=== PATIENT | male | born 1935 | race Caucasian/White ===

== ENCOUNTER 2017-08-05 12:21 | Inpatient (IN) | payer MEDICARE, OTHER ==
[2017-08-05 13:20] LABS: CHLORIDE,CL 95 mEq/L (98-106); SODIUM,NA 131 mEq/L (136-145)
[2017-08-05] MEDS ORDERED: Sodium Chloride 0.9% 10 ML Syringe FLUSH PRN (14:56)
[2017-08-05] MEDS ORDERED: Ondansetron 4 MG/2 ML SDV IV PRN (14:56)
[2017-08-05] MEDS ORDERED: Temazepam 15 MG Cap PO PRN (14:56)
[2017-08-05] MEDS ORDERED: Magnesium Hydroxide 400 MG/5 ML Susp 30 ML Cup PO PRN (14:56)
[2017-08-05] MEDS ORDERED: Calcium Carbonate 500 MG Tab.Chew PO PRN (15:01)
[2017-08-05] MEDS ORDERED: Non-Formulary Medication 1 Each (Benzonatate [Tessalon Perle] 100 MG) PO PRN (15:03)
[2017-08-05] MEDS ORDERED: Nitroglycerin 0.4 MG Tab.SL SL PRN (15:03)
[2017-08-05] MEDS ORDERED: valACYclovir 500 MG Tab PO SCH (15:15)
[2017-08-05] MEDS: cefTRIAXone 1 GM Vial IVPUSH SCH (17:24)
[2017-08-05] MEDS: Enoxaparin 30 MG/0.3 ML Syringe SUBCUT SCH (17:28)
[2017-08-05] MEDS: glipiZIDE 5 MG Tab PO SCH (17:29)
[2017-08-05] MEDS: valACYclovir 500 MG Tab PO SCH (18:25)
[2017-08-05] MEDS: MEMANTINE HCL 28 MG PO SCH (20:00)
[2017-08-05] MEDS: Donepezil 5 MG Tab PO SCH (20:56)
[2017-08-05] MEDS: atorvaSTATin 20 MG Tab PO SCH (20:56)
[2017-08-05] MEDS: Acetaminophen 325 MG Tab PO PRN (20:57)
[2017-08-06] MEDS: glipiZIDE 5 MG Tab PO SCH ×2 (07:03→16:43)
[2017-08-06] MEDS: Aspirin 81 MG Tab.EC PO SCH (07:46)
[2017-08-06] MEDS: amLODIPine 2.5 MG Tab PO SCH (07:46)
[2017-08-06] MEDS: Hydrochlorothiazide 25 MG Tab PO SCH (07:46)
[2017-08-06] MEDS: Losartan 25 MG Tab PO SCH (07:47)
[2017-08-06] MEDS: valACYclovir 500 MG Tab PO SCH (07:47)
[2017-08-06] MEDS: Cholecalciferol (Vitamin D3) 1,000 Unit Tab PO SCH (07:47)
[2017-08-06] MEDS: Metoprolol Succinate 25 MG Tab.ER PO SCH (07:47)
--- NOTE | 2017-08-06 10:11 | PN ---
DATE: 08/06/2017 S: Omar William has severe herpes zoster, mid thoracic, around the abdomen, a large area of cellulitis. On examination today, patient is not alert and orientated. The cellulitis has improved. He said he does not have much pain with it. ASSESSMENT: CELLULITIS. P: I will watch the kidney function. I had a long discussion about possible assisted placement for PT for a period of time. GUEVARA/LEONIE /[phone]
[2017-08-06] MEDS: cefTRIAXone 1 GM Vial IVPUSH SCH (16:43)
[2017-08-06] MEDS: Enoxaparin 30 MG/0.3 ML Syringe SUBCUT SCH (16:43)
[2017-08-06] MEDS: atorvaSTATin 20 MG Tab PO SCH (20:59)
[2017-08-06] MEDS: Acetaminophen 325 MG Tab PO PRN (20:59)
[2017-08-06] MEDS: Donepezil 5 MG Tab PO SCH (20:59)
[2017-08-06] MEDS: MEMANTINE HCL 28 MG PO SCH (21:00)
[2017-08-07] MEDS: Metoprolol Succinate 25 MG Tab.ER PO SCH (07:52)
[2017-08-07] MEDS: valACYclovir 500 MG Tab PO SCH (07:52)
[2017-08-07] MEDS: Aspirin 81 MG Tab.EC PO SCH (07:52)
[2017-08-07] MEDS: Losartan 25 MG Tab PO SCH (07:52)
[2017-08-07] MEDS: Cholecalciferol (Vitamin D3) 1,000 Unit Tab PO SCH (07:52)
[2017-08-07] MEDS: amLODIPine 2.5 MG Tab PO SCH (07:52)
[2017-08-07] MEDS: glipiZIDE 5 MG Tab PO SCH (07:53)
[2017-08-07] MEDS: Hydrochlorothiazide 25 MG Tab PO SCH (07:53)
[2017-08-07] MEDS: BRIMONIDINE EYEBOTH SCH ×2 (07:54→07:55)
[2017-08-07] MEDS ORDERED: NS + KCl 20mEq/L 1,000 ML IV ONE (08:48)
--- NOTE | 2017-08-07 08:59 | PCM.PN ---
- General Info Date of Service: 08/07/17 Admission Dx/Problem (Free Text): Herpes Zoster Cellulitis Subjective Update: Patient is sitting in chair eating breakfast at time of morning rounds. He is alert, but disoriented. He denies any complaints of pain. Nursing were concerned that patient was more sleepy last night. Head CT was done and showed no acute findings. Patient denies any pain. Has been requiring assist of 2 with ambulation. Functional Status: Reports: Pain Controlled, Tolerating Diet, Urinating. Denies : Ambulating, New Symptoms - Review of Systems General: Reports: Weakness, Fatigue. Denies: Fever, Chills HEENT: Reports: No Symptoms Pulmonary: Reports: No Symptoms. Denies: Shortness of Breath, Cough Cardiovascular: Reports: No Symptoms. Denies: Chest Pain Gastrointestinal: Reports: Decreased Appetite. Denies: Abdominal Pain, Constipation, Diarrhea, Nausea, Vomiting Genitourinary: Reports: No Symptoms Musculoskeletal: Reports: No Symptoms Skin: Reports: Rash Neurological: Reports: Confusion, Difficulty Walking, Weakness. Denies: Dizziness, Headache, Numbness, Paresthesia, Tingling, Tremors Psychiatric: Reports: Confusion (dementia) - Patient Data Vitals - Most Recent: Last Vital Signs Temp 97.5 F 08/07/17 00:00 Pulse 87 08/07/17 07:52 Resp 18 08/07/17 00:00 BP 140/84 08/07/17 07:52 Pulse Ox 97 08/07/17 00:00 Weight - Most Recent: 203 lb 6.4 oz Lab Results Last 24 Hours: Laboratory Results - last 24 hr 08/05/17 08/06/17 08/06/17 Range/Units 12:31 11:32 18:00 Sodium (136-145) mEq/L Potassium (3.5-5.0) mEq/L Chloride (98-106) mEq/L Carbon Dioxide (21-32) mmol/L BUN (7-18) mg/dL Creatinine (0.7-1.3) mg/dL Est Cr Clr Drug Dosing mL/min Estimated GFR (MDRD) (>=60) mL/min Glucose (75-99) mg/dL POC Glucose 189 H 162 H (75-105) mg/dl Calcium (8.4-10.1) mg/dL Vitamin D 25-Hydroxy 56 (30-100) ng/mL 08/06/17 08/07/17 08/07/17 Range/Units 20:31 00:21 07:15 Sodium 133 L (136-145) mEq/L Potassium 3.5 (3.5-5.0) mEq/L Chloride 96 L (98-106) mEq/L Carbon Dioxide 25 (21-32) mmol/L BUN 58 H (7-18) mg/dL Creatinine 2.6 H* (0.7-1.3) mg/dL Est Cr Clr Drug Dosing 23.63 mL/min Estimated GFR (MDRD) 24 L (>=60) mL/min Glucose 134 H D (75-99) mg/dL POC Glucose 220 H 149 H (75-105) mg/dl Calcium 8.9 (8.4-10.1) mg/dL Vitamin D 25-Hydroxy (30-100) ng/mL 08/07/17 Range/Units 07:58 Sodium (136-145) mEq/L Potassium (3.5-5.0) mEq/L Chloride (98-106) mEq/L Carbon Dioxide (21-32) mmol/L BUN (7-18) mg/dL Creatinine (0.7-1.3) mg/dL Est Cr Clr Drug Dosing mL/min Estimated GFR (MDRD) (>=60) mL/min Glucose (75-99) mg/dL POC Glucose 117 H (75-105) mg/dl Calcium (8.4-10.1) mg/dL Vitamin D 25-Hydroxy (30-100) ng/mL Med Orders - Current: Current Medications Acetaminophen (Tylenol) 650 mg PO Q4H PRN PRN Reason: Pain (Mild 1-3)/fever Last Admin: 08/06/17 20:59 Dose: 650 mg Amlodipine Bes[facility] ([facility]) [facility] [place] [facility] Admin: 08/07/17 07:52 Dose: 2.5 mg Aspirin (Halfprin) 81 mg PO QAM [facility] Last Admin: 08/07/17 07:52 Dose: 81 mg Atorvastatin Calcium (Lipitor) 20 mg PO QPM [facility] Last Admin: 08/06/17 20:59 Dose: 20 mg Calcium Carbonate/Glycine (Tums) 500 mg PO QID PRN PRN Reason: Dyspepsia Ceftriaxone Sodium (Rocephin) 1 gm IVPUSH Q24H [facility] Last Admin: 08/06/17 16:43 Dose: 1 gm Cholecalciferol (Vitamin D3) 2,000 units PO DAILY [facility] Last Admin: 08/07/17 07:52 Dose: 2,000 units Donepezil HCl (Aricept) 10 mg PO QPM [facility] Last Admin: 08/06/17 20:59 Dose: 10 mg Enoxaparin Sodium (Lovenox) 30 mg SUBCUT Q24H [facility] Last Admin: 08/06/17 16:43 Dose: 30 mg Glipizide (Glucotrol) 5 mg PO BIDAC [facility] Last Admin: 08/07/17 07:53 Dose: 5 mg Hydrochlorothiazide (Hydrochlorothiazide) 25 mg PO QAM [facility] Last Admin: 08/07/17 07:53 Dose: 25 mg Potassium Chloride/Sodium Chloride (Normal Saline With 20 Meq Kcl) 1,000 mls @ 100 mls/hr IV ONETIME ONE Stop: 08/07/17 18:47 Losartan Potassium (Cozaar) 50 mg PO DAILY [facility] Last Admin: 08/07/17 07:52 Dose: 50 mg Magnesium Hydroxide (Milk Of Magnesia) 30 ml PO Q12H PRN PRN Reason: Constipation Metoprolol Succinate (Toprol Xl) 50 mg PO DAILY [facility] Last Admin: 08/07/17 07:52 Dose: 50 mg Nitroglycerin (Nitrostat) 0.4 mg SL Q5M PRN PRN Reason: Chest Pain Non-Formulary Medication (Benzonatate [Tessalon Perle]) 100 mg PO QID PRN PRN Reason: Cough Ptom Brimonidine [Alphagan P 0.2% Oph Soln] 1 drop EYEBOTH BID [facility] Last Admin: 08/07/17 07:55 Dose: 1 drop (Memantine Hcl [ Namenda Xr] 28 Mg)* Pt Own Supply* 28 mg PO QPM [facility] Last Admin: 08/06/17 21:00 Dose: 28 mg (Sitagliptin [ Januvia] 25 Mg)*Pt Own Med* 25 mg PO QAM [facility] Last Admin: 08/07/17 07:55 Dose: 25 mg Ondansetron HCl (Zofran) 4 mg IV Q6H PRN PRN Reason: Nausea/Vomiting Sodium Chloride (Saline Flush) 10 ml FLUSH ASDIRECTED PRN PRN Reason: Keep Vein Open Temazepam (Restoril) 15 mg PO BEDTIME PRN PRN Reason: Sleep Valacyclovir HCl (Valtrex) 1,000 mg PO DAILY [facility] Last Admin: 08/07/17 07:52 Dose: 1,000 mg Discontinued Medications Valacyclovir HCl (Valtrex) 1,000 mg PO BID [facility] Last Admin: 08/05/17 17:40 Dose: Not Given - Exam Quality Assessment: DVT Prophylaxis. No: Supplemental Oxygen General: Alert, No Acute Distress HEENT: Pupils Equal, Pupils Reactive, EOMI, Mucous Membr. Moist/[place] Neck: Supple Lungs: Clear to Auscultation, Normal Respiratory Effort Cardiovascular: Regular Rate, Regular Rhythm, No Murmurs, Other (distant) Extremities: Normal Inspection, Normal Range of Motion, Non-Tender, No Pedal Edema, Normal Capillary Refill Skin: Rash (herpes zoster to anterior and posterior thorax) Neurological: No New Focal Deficit, Cranial Nerves Intact Psy/Mental Status: Alert, Normal Affect, Normal Mood - Problem List & Annotations (1) Herpes zoster infection of thoracic region SNOMED Code(s): 325406077 Code(s): B02.9 - ZOSTER WITHOUT COMPLICATIONS Status: Acute (2) Hypertension SNOMED Code(s): 90641533 Code(s): I10 - ESSENTIAL (PRIMARY) HYPERTENSION Status: Chronic Qualifiers: Hypertension type: essential hypertension Qualified Code(s): I10 - Essential (primary) hypertension (3) Hyperlipidemia SNOMED Code(s): 84577353 Code(s): E78.5 - HYPERLIPIDEMIA, UNSPECIFIED Status: Chronic Qualifiers: Hyperlipidemia type: unspecified Qualified Code(s): E78.5 - Hyperlipidemia , unspecified (4) Fatigue SNOMED Code(s): 35766835 Code(s): R53.83 - OTHER FATIGUE Status: Acute Qualifiers: Fatigue type: unspecified Qualified Code(s): R53.83 - Other fatigue (5) Diabetes mellitus type 2 in nonobese SNOMED Code(s): 419098451 Code(s): E11.9 - TYPE 2 DIABETES MELLITUS WITHOUT COMPLICATIONS Status: Acute - Problem List Review Problem List Initiated/Reviewed/Updated: Yes - My Orders Last 24 Hours: My Active Orders 08/06/17 08:00 Aspirin [Halfprin] 81 mg PO QAM Cholecalciferol (Vitamin D3) [Vitamin D3] 2,000 units PO DAILY Hydrochlorothiazide 25 mg PO QAM Losartan [Cozaar] 50 mg PO DAILY Metoprolol Succinate [Toprol XL] 50 mg PO DAILY SitaGLIPtin [Januvia] 25 mg PO QAM amLODIPine [Norvasc] 2.5 mg PO QAM 08/07/17 08:48 NS + KCl 20mEq/L [Normal Saline with 20 mEq KCl] 1,000 ml IV ONETIME - Plan Plan:: Will switch to IV acyclovir TID given severity of herpes zoster and decreased LOC Continue neuro checks Continue all other current cares
[2017-08-07] MEDS ORDERED: Insulin Aspart 100 Units/ML 3 ML Pen SUBCUT SCH (12:56)
[2017-08-07] MEDS ORDERED: LORazepam 2 MG/ML Syringe IVPUSH STA (14:55)
[2017-08-07] MEDS ORDERED: LORazepam 2 MG/ML Syringe ONE (15:06)
[2017-08-07] MEDS ORDERED: Phenytoin 250 MG/5 ML SDV IV ONE (15:45)
--- NOTE | 2017-08-07 15:50 | PCM.DCSUM1 ---
Discharge Summary - Hospital Course HPI Initial Comments: Omar is an 81 year old gentleman who was admitted to the hospital from the clinic by Dr. Lloyd on 08/05/2017 for herpes zoster to the left thoracic area and surrounding cellulitis. Patient was initially started on 1 gm Valtrex PO QD and 1 gm Rocephin QD. Labs were relatively stable upon admission except creatinine, which was 2.5. Patient normally doctors in [place], so no baseline kidney function is known. Throughout hospital stay, patient got progressively weak. Head CT was completed 08/06/2017, which was negative. Patient was switched to acyclovir IV 800 mg TID. He received only 1 dose of the IV medication. reported that up until about 4 days ago, patient was ambulating independently with a walker. He was requiring assist of 2 in the hospital. He does have a history of dementia. This morning (08/07/2017) patient was alert and oriented to baseline. Blood sugar did spike to 467 prior to lunch. Patient was given 10 units Novolog. Repeat blood glucose 246. This afternoon (08/07/2017) patient became lethargic and had tremors to BUE. Dr. Brady and myself came to assess patient. Patient appeared to be having seizure activity. 1 mg Ativan was administered IV. Tremors slowed, but patient remained unresponsive. Life flight was called. Patient was administered 250 mg Dilantin IV prior to departure. Patient will be transferred to [facility]. Patient was intubated prior to departure. - Discharge Data Discharge Date: 08/07/17 Discharge Disposition: DC/Tfer to Acute Hospital 02 Condition: Stable - Discharge Diagnosis/Problem(s) (1) Herpes zoster infection of thoracic region SNOMED Code(s): 111238803 ICD Code: B02.9 - ZOSTER WITHOUT COMPLICATIONS Status: Acute Current Visit: Yes (2) Seizure SNOMED Code(s): 60023866 ICD Code: R56.9 - UNSPECIFIED CONVULSIONS Status: Acute Current Visit: Yes (3) Diabetes mellitus type 2 in nonobese SNOMED Code(s): 952028253 ICD Code: E11.9 - TYPE 2 DIABETES MELLITUS WITHOUT COMPLICATIONS Status: Acute Current Visit: Yes (4) Fatigue SNOMED Code(s): 68410318 ICD Code: R53.83 - OTHER FATIGUE Status: Acute Current Visit: Yes Qualifiers: Fatigue type: unspecified Qualified Code(s): R53.83 - Other fatigue (5) Hyperlipidemia SNOMED Code(s): 61030469 ICD Code: E78.5 - HYPERLIPIDEMIA, UNSPECIFIED Status: Chronic Current Visit: Yes Qualifiers: Hyperlipidemia type: unspecified Qualified Code(s): E78.5 - Hyperlipidemia , unspecified (6) Hypertension SNOMED Code(s): 39644606 ICD Code: I10 - ESSENTIAL (PRIMARY) HYPERTENSION Status: Chronic Current Visit: Yes Qualifiers: Hypertension type: essential hypertension Qualified Code(s): I10 - Essential (primary) hypertension - Patient Summary/Data Consults: Consultations 08/05/17 14:56 PT Evaluation and Treatment [CONS] Routine - Patient Instructions Diet: NPO Activity: As Tolerated - Discharge Plan Home Medications: Home Meds Aspirin [Halfprin] 81 mg PO QAM 08/05/17 [History] B2/Vit A,C & E/Lut/Zeaxanth/Mn [Icaps] 1 each PO QAM 08/05/17 [History] Benzonatate [Tessalon Perle] 100 mg PO QID PRN 08/05/17 [History] Brimonidine [Alphagan P 0.15% Ophth Soln] 1 drop EYEBOTH BID 08/05/17 [History] Cholecalciferol (Vitamin D3) [Vitamin D3] 2,000 units PO QAM 08/05/17 [History] Donepezil HCl [Aricept] 10 mg PO QPM 08/05/17 [History] Hydrochlorothiazide 25 mg PO QAM 08/05/17 [History] Memantine HCl [Namenda Xr] 28 mg PO QPM 08/05/17 [History] Metoprolol Succinate [Toprol Xl] 50 mg PO QAM 08/05/17 [History] Multivit with Calcium,Iron,Min [Essential Daily] 1 each PO DAILY 08/05/17 [ History] Nitroglycerin [Nitrostat] 0.4 mg PO Q5M PRN 08/05/17 [History] Olmesartan [Benicar] 20 mg PO QAM 08/05/17 [History] SitaGLIPtin [Januvia] 25 mg PO QAM 08/05/17 [History] amLODIPine [Norvasc] 2.5 mg PO QAM 08/05/17 [History] atorvaSTATin [Lipitor] 20 mg PO QPM 08/05/17 [History] glipiZIDE [Glucotrol] 5 mg PO BID 08/05/17 [History] - General Info Date of Service: 08/07/17 Admission Dx/Problem (Free Text: Herpes Zoster Cellulitis Functional Status: Reports: New Symptoms (lethargy, tremors, seizure activity) - Review of Systems General: Reports: Weakness, Fatigue. Denies: Fever, Chills Pulmonary: Reports: No Symptoms Cardiovascular: Reports: No Symptoms Skin: Reports: Rash (herpes zoster to left thorax) Neurological: Reports: Seizure, Other (lethargy) - Patient Data Vitals - Most Recent: Last Vital Signs Temp 97.2 F 08/07/17 08:00 Pulse 87 08/07/17 08:00 Resp 20 08/07/17 08:00 BP 140/84 08/07/17 08:00 Pulse Ox 95 08/07/17 08:00 Weight - Most Recent: 203 lb 6.4 oz Lab Results - Last 24 hrs: Laboratory Results - last 24 hr 08/05/17 08/06/17 08/06/17 Range/Units 12:31 18:00 20:31 WBC (5.0-10.0) 10^3/uL RBC (4.50-6.00) 10^6/uL Hgb (14.0-18.0) g/dL Hct (40.0-54.0) % MCV (82.0-94.0) fL MCH (27.0-32.0) pg MCHC (33.0-38.0) g/dL RDW Coeff of Jerri (11.0-15.0) % Plt Count (150-400) 10^3/uL Add Manual Diff Neutrophils % (Manual) (35-85) % Lymphocytes % (Manual) (21-55) % Monocytes % (Manual) (2-12) % Eosinophils % (Manual) (0-5) % Absolute Neutrophils (1.80-7.00) 10^3/uL Lymphocytes # (Manual) (1.00-4.80) 10^3/uL Monocytes # (Manual) (0.00-0.80) 10^3/uL Eosinophils # (Manual) (0.00-0.45) 10^3/uL Sodium (136-145) mEq/L Potassium (3.5-5.0) mEq/L Chloride (98-106) mEq/L Carbon Dioxide (21-32) mmol/L BUN (7-18) mg/dL Creatinine (0.7-1.3) mg/dL Est Cr Clr Drug Dosing mL/min Estimated GFR (MDRD) (>=60) mL/min Glucose (75-99) mg/dL POC Glucose 162 H 220 H (75-105) mg/dl Calcium (8.4-10.1) mg/dL Vitamin D 25-Hydroxy 56 (30-100) ng/mL Urine Color (YELLOW) Urine Appearance (CLEAR) Urine pH (4.5-8.0) Ur Specific [place] (1.003-1.020) Urine Protein (NEGATIVE) mg/dL Urine Glucose (UA) (NEGATIVE) mg/dL Urine Ketones (NEGATIVE) mg/dL Urine Occult Blood (NEGATIVE) Urine Nitrite (NEGATIVE) Urine Bilirubin (NEGATIVE) Urine Urobilinogen (0.2-1.0) EU/dL Ur Leukocyte Esterase (NEGATIVE) Urine RBC (0-5) /HPF Urine WBC (0-5) /HPF Ur Squamous Epith Cells (NOT SEEN) /HPF Amorphous Sediment (NOT SEEN) /HPF 08/07/17 08/07/17 08/07/17 Range/Units 00:21 07:00 07:15 WBC 7.5 (5.0-10.0) 10^3/uL RBC 4.26 L (4.50-6.00) 10^6/uL Hgb 13.0 L (14.0-18.0) g/dL Hct 37.9 L (40.0-54.0) % MCV 89.0 (82.0-94.0) fL MCH 30.5 (27.0-32.0) pg MCHC 34.3 (33.0-38.0) g/dL RDW Coeff of Jerri 12.7 (11.0-15.0) % Plt Count 122 L (150-400) 10^3/uL Add Manual Diff Yes Neutrophils % (Manual) 66 (35-85) % Lymphocytes % (Manual) 18 L (21-55) % Monocytes % (Manual) 15 H (2-12) % Eosinophils % (Manual) 1 (0-5) % Absolute Neutrophils 4.95 (1.80-7.00) 10^3/uL Lymphocytes # (Manual) 1.35 (1.00-4.80) 10^3/uL Monocytes # (Manual) 1.13 H (0.00-0.80) 10^3/uL Eosinophils # (Manual) 0.08 (0.00-0.45) 10^3/uL Sodium 133 L (136-145) mEq/L Potassium 3.5 (3.5-5.0) mEq/L Chloride 96 L (98-106) mEq/L Carbon Dioxide 25 (21-32) mmol/L BUN 58 H (7-18) mg/dL Creatinine 2.6 H* (0.7-1.3) mg/dL Est Cr Clr Drug Dosing 23.63 mL/min Estimated GFR (MDRD) 24 L (>=60) mL/min Glucose 134 H D (75-99) mg/dL POC Glucose 149 H (75-105) mg/dl Calcium 8.9 (8.4-10.1) mg/dL Vitamin D 25-Hydroxy (30-100) ng/mL Urine Color (YELLOW) Urine Appearance (CLEAR) Urine pH (4.5-8.0) Ur Specific [place] (1.003-1.020) Urine Protein (NEGATIVE) mg/dL Urine Glucose (UA) (NEGATIVE) mg/dL Urine Ketones (NEGATIVE) mg/dL Urine Occult Blood (NEGATIVE) Urine Nitrite (NEGATIVE) Urine Bilirubin (NEGATIVE) Urine Urobilinogen (0.2-1.0) EU/dL Ur Leukocyte Esterase (NEGATIVE) Urine RBC (0-5) /HPF Urine WBC (0-5) /HPF Ur Squamous Epith Cells (NOT SEEN) /HPF Amorphous Sediment (NOT SEEN) /HPF 08/07/17 08/07/17 08/07/17 Range/Units 07:58 12:06 14:36 WBC (5.0-10.0) 10^3/uL RBC (4.50-6.00) 10^6/uL Hgb (14.0-18.0) g/dL Hct (40.0-54.0) % MCV (82.0-94.0) fL MCH (27.0-32.0) pg MCHC (33.0-38.0) g/dL RDW Coeff of Jerri (11.0-15.0) % Plt Count (150-400) 10^3/uL Add Manual Diff Neutrophils % (Manual) (35-85) % Lymphocytes % (Manual) (21-55) % Monocytes % (Manual) (2-12) % Eosinophils % (Manual) (0-5) % Absolute Neutrophils (1.80-7.00) 10^3/uL Lymphocytes # (Manual) (1.00-4.80) 10^3/uL Monocytes # (Manual) (0.00-0.80) 10^3/uL Eosinophils # (Manual) (0.00-0.45) 10^3/uL Sodium (136-145) mEq/L Potassium (3.5-5.0) mEq/L Chloride (98-106) mEq/L Carbon Dioxide (21-32) mmol/L BUN (7-18) mg/dL Creatinine (0.7-1.3) mg/dL Est Cr Clr Drug Dosing mL/min Estimated GFR (MDRD) (>=60) mL/min Glucose (75-99) mg/dL POC Glucose 117 H 467 H* 246 H (75-105) mg/dl Calcium (8.4-10.1) mg/dL Vitamin D 25-Hydroxy (30-100) ng/mL Urine Color (YELLOW) Urine Appearance (CLEAR) Urine pH (4.5-8.0) Ur Specific [place] (1.003-1.020) Urine Protein (NEGATIVE) mg/dL Urine Glucose (UA) (NEGATIVE) mg/dL Urine Ketones (NEGATIVE) mg/dL Urine Occult Blood (NEGATIVE) Urine Nitrite (NEGATIVE) Urine Bilirubin (NEGATIVE) Urine Urobilinogen (0.2-1.0) EU/dL Ur Leukocyte Esterase (NEGATIVE) Urine RBC (0-5) /HPF Urine WBC (0-5) /HPF Ur Squamous Epith Cells (NOT SEEN) /HPF Amorphous Sediment (NOT SEEN) /HPF 08/07/17 Range/Units 14:40 WBC (5.0-10.0) 10^3/uL RBC (4.50-6.00) 10^6/uL Hgb (14.0-18.0) g/dL Hct (40.0-54.0) % MCV (82.0-94.0) fL MCH (27.0-32.0) pg MCHC (33.0-38.0) g/dL RDW Coeff of Jerri (11.0-15.0) % Plt Count (150-400) 10^3/uL Add Manual Diff Neutrophils % (Manual) (35-85) % Lymphocytes % (Manual) (21-55) % Monocytes % (Manual) (2-12) % Eosinophils % (Manual) (0-5) % Absolute Neutrophils (1.80-7.00) 10^3/uL Lymphocytes # (Manual) (1.00-4.80) 10^3/uL Monocytes # (Manual) (0.00-0.80) 10^3/uL Eosinophils # (Manual) (0.00-0.45) 10^3/uL Sodium (136-145) mEq/L Potassium (3.5-5.0) mEq/L Chloride (98-106) mEq/L Carbon Dioxide (21-32) mmol/L BUN (7-18) mg/dL Creatinine (0.7-1.3) mg/dL Est Cr Clr Drug Dosing mL/min Estimated GFR (MDRD) (>=60) mL/min Glucose (75-99) mg/dL POC Glucose (75-105) mg/dl Calcium (8.4-10.1) mg/dL Vitamin D 25-Hydroxy (30-100) ng/mL Urine Color Yellow (YELLOW) Urine Appearance Clear (CLEAR) Urine pH 5.0 (4.5-8.0) Ur Specific [place] 1.015 (1.003-1.020) Urine Protein Trace H (NEGATIVE) mg/dL Urine Glucose (UA) Negative (NEGATIVE) mg/dL Urine Ketones Negative (NEGATIVE) mg/dL Urine Occult Blood Trace-intact H (NEGATIVE) Urine Nitrite Negative (NEGATIVE) Urine Bilirubin Negative (NEGATIVE) Urine Urobilinogen 0.2 (0.2-1.0) EU/dL Ur Leukocyte Esterase Negative (NEGATIVE) Urine RBC 0-5 (0-5) /HPF Urine WBC 0-5 (0-5) /HPF Ur Squamous Epith Cells Occasional H (NOT SEEN) /HPF Amorphous Sediment Few H (NOT SEEN) /HPF Med Orders - Current: Current Medications Acetaminophen (Tylenol) 650 mg PO Q4H PRN PRN Reason: Pain (Mild 1-3)/fever Last Admin: 08/06/17 20:59 Dose: 650 mg Amlodipine Besylate (Norvasc) 2.5 mg PO QAM [facility] Last Admin: 08/07/17 07:52 Dose: 2.5 mg Aspirin (Halfprin) 81 mg PO QAM [facility] Last Admin: 08/07/17 07:52 Dose: 81 mg Atorvastatin Calcium (Lipitor) 20 mg PO QPM [facility] Last Admin: 08/06/17 20:59 Dose: 20 mg Calcium Carbonate/Glycine (Tums) 500 mg PO QID PRN PRN Reason: Dyspepsia Ceftriaxone Sodium (Rocephin) 1 gm IVPUSH Q24H [facility] Last Admin: 08/06/17 16:43 Dose: 1 gm Cholecalciferol (Vitamin D3) 2,000 units PO DAILY [facility] Last Admin: 08/07/17 07:52 Dose: 2,000 units Donepezil HCl (Aricept) 10 mg PO QPM [facility] Last Admin: 08/06/17 20:59 Dose: 10 mg Enoxaparin Sodium (Lovenox) 30 mg SUBCUT Q24H [facility] Last Admin: 08/06/17 16:43 Dose: 30 mg Glipizide (Glucotrol) 5 mg PO BIDAC [facility] Last Admin: 08/07/17 07:53 Dose: 5 mg Hydrochlorothiazide (Hydrochlorothiazide) 25 mg PO QAM [facility] Last Admin: 08/07/17 07:53 Dose: 25 mg Potassium Chloride/Sodium Chloride (Normal Saline With 20 Meq Kcl) 1,000 mls @ 100 mls/hr IV ONETIME ONE Stop: 08/07/17 18:47 Last Admin: 08/07/17 09:21 Dose: 100 mls/hr Acyclovir 800 mg/ Sodium (Chloride) 116 mls @ 116 mls/hr IV Q8H [facility] Last Admin: 08/07/17 12:07 Dose: 116 mls/hr Sodium Chloride (Normal Saline) 1,000 mls @ 100 mls/hr IV ASDIRECTED [facility] Insulin Aspart (Novolog) 0 unit SUBCUT WITHMEALSANDBED [facility] PRN Reason: Protocol Last Admin: 08/07/17 13:51 Dose: 10 units Losartan Potassium (Cozaar) 50 mg PO DAILY [facility] Last Admin: 08/07/17 07:52 Dose: 50 mg Magnesium Hydroxide (Milk Of Magnesia) 30 ml PO Q12H PRN PRN Reason: Constipation Metoprolol Succinate (Toprol Xl) 50 mg PO DAILY [facility] Last Admin: 08/07/17 07:52 Dose: 50 mg Nitroglycerin (Nitrostat) 0.4 mg SL Q5M PRN PRN Reason: Chest Pain Non-Formulary Medication (Benzonatate [Tessalon Perle]) 100 mg PO QID PRN PRN Reason: Cough Ptom Brimonidine [Alphagan P 0.2% Ophth Soln] 1 drop EYEBOTH BID [facility] Last Admin: 08/07/17 07:55 Dose: 1 drop (Memantine Hcl [ Namenda Xr] 28 Mg)* Pt Own Supply* 28 mg PO QPM [facility] Last Admin: 08/06/17 21:00 Dose: 28 mg (Sitagliptin [ Januvia] 25 Mg)*Pt Own Med* 25 mg PO QAM [facility] Last Admin: 08/07/17 07:55 Dose: 25 mg Ondansetron HCl (Zofran) 4 mg IV Q6H PRN PRN Reason: Nausea/Vomiting Sodium Chloride (Saline Flush) 10 ml FLUSH ASDIRECTED PRN PRN Reason: Keep Vein Open Temazepam (Restoril) 15 mg PO BEDTIME PRN PRN Reason: Sleep Discontinued Medications Lorazepam (Ativan) Confirm Administered Dose 2 mg .ROUTE .STK-MED ONE Stop: 08/07/17 15:07 Last Admin: 08/07/17 14:58 Dose: Not Given Lorazepam (Ativan) 1 mg IVPUSH NOW STA Stop: 08/07/17 14:56 Last Admin: 08/07/17 14:55 Dose: 1 mg Phenytoin Sodium (Phenytoin) 250 mg IV ONETIME ONE Stop: 08/07/17 15:46 Valacyclovir HCl (Valtrex) 1,000 mg PO BID [facility] Last Admin: 08/05/17 17:40 Dose: Not Given Valacyclovir HCl (Valtrex) 1,000 mg PO DAILY [facility] Last Admin: 08/07/17 07:52 Dose: 1,000 mg - Exam Quality Assessment: Reports: Supplemental Oxygen, Urine Catheter General: Reports: Obtunded HEENT: Reports: Pupils Equal, Pupils Reactive, Mucous Membr. Moist/[place] Neck: Reports: Supple Lungs: Reports: Clear to Auscultation, Normal Respiratory Effort Cardiovascular: Reports: Regular Rate, Regular Rhythm, No Murmurs, Other ( distant) GI/Abdominal Exam: Normal Bowel Sounds, Soft Extremities: Normal Inspection, Normal Range of Motion, Non-Tender, No Pedal Edema, Normal Capillary Refill Skin: Reports: Warm, Dry, Intact, Rash (herpes zoster to left thorax) Neurological: Reports: Other (ROX, obtunded) *Q Meaningful Use (DIS) - VTE *Q VTE Criteria *Q: - Stroke *Q Stroke Criteria *Q: - AMI *Q AMI Criteria *Q:
[2017-08-07] MEDS ORDERED: Sodium Chloride 0.9% 1,000 ML IV SCH (16:00)
== END 2017-08-07 16:30 | DRG 596 ==
LOC: CC.FCMC 12:21 → CC.MS 12:21 → UNDOADMIN 13:56 → CC.MS 14:56
PROVIDERS: ADMIT General Practice; ATTEND General Practice
DX: B02.9 Zoster without complications (principal); L03.319 Cellulitis of trunk, unspecified; R53.83 Other fatigue; E55.9 Vitamin D deficiency, unspecified; R06.02 Shortness of breath; E78.5 Hyperlipidemia, unspecified; I10 Essential (primary) hypertension; R35.1 Nocturia; M19.90 Unspecified osteoarthritis, unspecified site; E11.9 Type 2 diabetes mellitus without complications; Z79.84 Long term (current) use of oral hypoglycemic drugs; Z79.82 Long term (current) use of aspirin; Z79.899 Other long term (current) drug therapy
CPT/HCPCS: 36415; 70450; 71046; 80048; 80053; 81001; 82306; 82550; 82607; 82746; 82962; 83735; 83880; 84443; 85025; 85379; 85651; 86140; 93005; 97163-GP; 97530-GP; A9270-GY; J0133; J0696; J1165; J1650; J1815-GY; J2060; J3480; J7050